=== PATIENT | female | born 1985 | race American Indian/Alaskan Native ===

== ENCOUNTER 2018-07-13 18:34 | Emergency (ER) | payer MEDICAID ==
[2018-07-13 18:41] VITALS: BP 131/89; PULSE 84; RESP 17; TEMP 98.4; O2SAT 100
[2018-07-13] MEDS ORDERED: Tetracaine 0.5% Ophth (OR ONLY) OS STA (20:08)
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
[2018-07-13] MEDS ORDERED: Tetracaine 0.5% Ophth (OR ONLY) ONE (20:13)
== END 2018-07-13 20:37 | disposition home or self-care (01) ==
LOC: C.ER 18:34
DX: S05.02XA Injury of conjunctiva and corneal abrasion without foreign body, left eye, initial encounter (principal); Y08.89XA Assault by other specified means, initial encounter

== ENCOUNTER 2018-11-30 15:45 | Outpatient (CLI) | payer MEDICAID | END 2018-11-30 15:46 | disposition home or self-care (01) | LOC: C.USIC 15:45 | DX: R79.89 Other specified abnormal findings of blood chemistry (principal) ==